=== PATIENT | female | born 1935 | race Caucasian/White ===

== ENCOUNTER 2016-08-16 20:30 | Outpatient (CLI) | payer MEDICARE, OTHER ==
[2016-08-16 17:13] LABS: BASOPHILS % (AUTO) 0.9 %; EOSINOPHILS # (AUTO) 0.1 10^3/uL (0.0-0.7); EOSINOPHILS % (AUTO) 1.5 %; HCT - HEMATOCRIT 39.2 % (37.0-47.0); HGB - HEMOGLOBIN 12.9 g/dL (12.0-16.0); LYMPHOCYTES # (AUTO) 1.2 10^3/uL (1.5-3.5); LYMPHOCYTES % (AUTO) 27.4 %; MEAN CORPUSCULAR HEMOGLOBIN 30.5 pg (27.0-31.0); MEAN CORPUSCULAR HGB CONC 32.8 g/dL (32.0-36.0); MEAN PLATELET VOLUME 8.1 fL (7.9-10.8); MONOCYTES # (AUTO) 0.3 10^3/uL (0.0-1.0); MONOCYTES % (AUTO) 7.7 %; NEUTROPHILS # (AUTO) 2.7 10^3/uL (1.5-6.6); NEUTROPHILS % (AUTO) 62.5 %; RED BLOOD COUNT 4.22 10^6/uL (4.20-5.40); RED CELL DISTRIBUTION WIDTH 13.8 % (12.0-15.0); UNCORRECTED WHITE BLOOD COUNT 4.3 x10^3/uL; WHITE BLOOD COUNT 4.3 x10^3/uL (4.8-10.8)
[2016-08-16 17:22] LABS: ALBUMIN/GLOBULIN RATIO 1.6 (1.0-2.2); BILIRUBIN,TOTAL 0.6 mg/dL (0.2-1.0); CALCIUM 9.4 mg/dL (8.5-10.3); CREATININE 0.7 mg/dL (0.4-1.0); POTASSIUM 3.8 mmol/L (3.5-5.0); TOTAL PROTEIN 6.9 g/dL (6.7-8.2)
[2016-08-17 06:03] LABS: TEST RESULT REPORT (())
== END 2016-08-16 20:31 | disposition home or self-care (01) ==
LOC: LAB.R 20:30
PROVIDERS: ATTEND Internal Medicine
DX: D70.9 Neutropenia, unspecified (principal); M19.90 Unspecified osteoarthritis, unspecified site; E55.9 Vitamin D deficiency, unspecified
CPT/HCPCS: 80053; 81599; 82306; 85025

== ENCOUNTER 2016-10-04 08:57 | Outpatient (CLI) | payer MEDICARE, OTHER ==
[2016-10-04 12:06] LABS: BASOPHILS % (AUTO) 1.1 %; EOSINOPHILS # (AUTO) 0.1 10^3/uL (0.0-0.7); EOSINOPHILS % (AUTO) 1.5 %; HCT - HEMATOCRIT 37.9 % (37.0-47.0); HGB - HEMOGLOBIN 12.8 g/dL (12.0-16.0); LYMPHOCYTES # (AUTO) 1.1 10^3/uL (1.5-3.5); LYMPHOCYTES % (AUTO) 32.1 %; MEAN CORPUSCULAR HEMOGLOBIN 31.1 pg (27.0-31.0); MEAN CORPUSCULAR HGB CONC 33.7 g/dL (32.0-36.0); MEAN CORPUSCULAR VOLUME 92.3 fL (81.0-99.0); MEAN PLATELET VOLUME 7.5 fL (7.9-10.8); MONOCYTES # (AUTO) 0.3 10^3/uL (0.0-1.0); MONOCYTES % (AUTO) 9.6 %; NEUTROPHILS % (AUTO) 55.7 %; RED BLOOD COUNT 4.11 10^6/uL (4.20-5.40); RED CELL DISTRIBUTION WIDTH 13.6 % (12.0-15.0); UNCORRECTED WHITE BLOOD COUNT 3.6 x10^3/uL; WHITE BLOOD COUNT 3.6 x10^3/uL (4.8-10.8)
== END 2016-10-04 08:58 | disposition home or self-care (01) ==
LOC: LAB.R 08:57
PROVIDERS: ATTEND Internal Medicine
DX: R59.0 Localized enlarged lymph nodes (principal)
CPT/HCPCS: 85025; 85651; 86140

== ENCOUNTER 2016-10-12 14:13 | Outpatient (CLI) | payer MEDICARE, OTHER ==
--- NOTE | 2016-10-13 08:33 | Ultrasound Report ---
ULTRASOUND RIGHT NECK: 10/12/2016 CLINICAL INDICATION: Preauricular nodule. TECHNIQUE: Real-time scanning was performed with promotions representative static images obtained. Ultrasound of the palpable abnormality identified by the patient was performed. At this site, there is a 1.3 x 1.1 x 0.6 cm cyst with internal debris and a thin septation. No sonographically suspiciou s findings are identified. No vascularity is appreciated. IMPRESSION: SMALL CYST, ACCOUNTING FOR THE PALPABLE ABNORMALITY. JOB #: [id number] EXT JOB #:[id number]
== END 2016-10-12 14:14 | disposition home or self-care (01) ==
LOC: DI 14:13
PROVIDERS: ATTEND Internal Medicine
DX: Q18.1 Preauricular sinus and cyst (principal)
CPT/HCPCS: 76536

== ENCOUNTER 2016-11-25 16:51 | Emergency (ER) | payer MEDICARE, OTHER ==
[2016-11-25 17:14] VITALS: BP 121/75
--- NOTE | 2016-11-25 17:25 | ED Physician Documentation ---
PD HPI FEVER - Stated complaint Stated Complaint: FEVER - Chief complaint Chief Complaint: Fever - History obtained from History obtained from: Patient, Family - History of Present Illness Timing - onset: How many days ago (3) Timing duration: Days (3) Timing details: Gradual onset Pain level max: 0 Pain level now: 0 Associated symptoms: Nasal congestion, Rhinorrhea, Dry cough. No: Sore throat, Productive cough, Hemoptysis, Chest pain, Dyspnea, Abdominal pain, NVD Contributing factors: Immunocompromised (has had neutropenia before, but not for several years). No: Sick contact, Travel, Unimmunized, COPD / asthma Similar symptoms before: Has not had sx before Recently seen: Clinic (2 days ago for same) Review of Systems Constitutional: reports: Fever (up to 103 at home). denies: Chills Respiratory: reports: Cough GI: denies: Abdominal Pain, Nausea, Vomiting, Diarrhea Skin: denies: Rash Musculoskeletal: denies: Neck pain, Back pain Neurologic: denies: Focal weakness, Numbness, Headache PD PAST MEDICAL HISTORY - Past Medical History Past Medical History: Yes Cardiovascular: None Respiratory: None, Other Neuro: None Endocrine/Autoimmune: None GI: None COMMUNICATIONS ADVISOR: None : None HEENT: None Psych: Panic attacks Musculoskeletal: Osteoarthritis Derm: None - Past Surgical History General: Colonoscopy /COMMUNICATIONS ADVISOR: Hysterectomy - Present Medications Home Medications: Ambulatory Orders Medication Instructions Recorded Confirmed Acetaminophen [Pain Relief] 500 mg PO PRN PRN 09/02/12 11/25/16 Cholecalciferol [Vitamin D3] 400 unit PO DAILY 09/02/12 11/25/16 Azithromycin [Zithromax] 250 mg PO DAILY #4 tablet 11/25/16 - Allergies Allergies/Adverse Reactions: Allergies Allergy/AdvReac Type Severity Reaction Status Date / Time codeine Allergy Nausea Verified 11/25/16 18:16 - Social History Does the pt smoke?: No Smoking Status: Former smoker PD ED PE NORMAL - Vitals Vital signs reviewed: Yes - General General: Alert and oriented X 3, No acute distress - HEENT HEENT: PERRL, Moist mucous membranes, Pharynx benign - Neck Neck: Supple, no meningeal sign - Cardiac Cardiac: RRR, Strong equal pulses - Respiratory Respiratory: No respiratory distress, Other (rhonchi LLL) - Abdomen Abdomen: Soft, Non tender, Non distended - Back Back: No CVA TTP - Derm Derm: Warm and dry, No rash - Neuro Neuro: Alert and oriented X 3 - Psych Psych: Normal mood, Normal affect Results - Vitals Vitals: Vital Signs - 24 hr 11/25/16 17:08 Temperature 37.5 C Heart Rate 81 Respiratory 16 Rate Blood Pressure 121/75 O2 Saturation 92 Oxygen O2 Source Room air - Labs Labs: Laboratory Tests 11/25/16 11/25/16 11/25/16 17:45 17:48 17:48 WBC 4.3 L RBC 4.18 L Hgb 13.2 Hct 38.6 MCV 92.3 MCH 31.6 H MCHC 34.3 RDW 13.0 Plt Count 209 MPV 6.8 L Neut # 2.7 Lymph # 1.0 L Bartholomew # 0.6 Eos # 0.0 Baso # 0.0 Absolute Nucleated RBC 0.00 Nucleated RBCs 0.0 Sodium 136 Potassium 4.2 Chloride 101 Carbon Dioxide 27 Anion Gap 8.0 BUN 18 Creatinine 0.8 Estimated GFR (MDRD) 69 L Glucose 112 H Calcium 8.8 Total Bilirubin 0.4 AST 26 ALT 19 Alkaline Phosphatase 52 Total Protein 7.5 Albumin 3.8 Globulin 3.7 Albumin/Globulin Ratio 1.0 Lipase 81 H Urine Color YELLOW Urine Clarity CLEAR Urine pH 5.5 Ur Specific [place] >=1.030 H Urine Protein 30 H Urine Glucose (UA) NEGATIVE Urine Ketones TRACE Urine Occult Blood SMALL H Urine Nitrite NEGATIVE Urine Bilirubin NEGATIVE Urine Urobilinogen 0.2 (NORMAL) Ur Leukocyte Esterase SMALL H Urine RBC 0-5 Urine WBC 11-25 H Ur Squamous Epith Cells MANY Squamous H Urine Bacteria Few Urine Mucus Few Strands Ur Microscopic Review INDICATED Urine Culture Comments NOT INDICATED - Rads (name of study) Chest x-ray Radiology: Prelim report reviewed, EMP read contemporaneously, See rad report ( New 5 cm opacity in the superior segment left lower lobe. In the setting of fever and cough would be suspicious for pneumonia. Pulmonary malignancy could have a similar appearance and radiographic follow-up is recommended) PD MEDICAL DECISION MAKING - ED course Complexity details: reviewed results, re-evaluated patient, considered differential, d/w patient, d/w family ED course: Patient is a 81-year-old female who presents to the emergency department with fever, cough and what appears to be a pneumonia on chest x-ray. Will place on antibiotics for home. We will have her follow-up with her doctor for repeat chest x-ray after she finishes her antibiotics to ensure that this opacity has cleared and does not represent a possible pulmonary malignancy. Patient and family counseled regarding signs and symptoms for which I believe and urgent re- evaluation would be necessary. Patient with good understanding of and agreement to plan and is comfortable going home at this time This document was made in part using voice recognition software. While efforts are made to proofread this document, sound alike and grammatical errors may occur. Departure - Departure Disposition: 01 Home, Self Care Clinical Impression: Pneumonia Qualifiers: Pneumonia type: due to unspecified organism Laterality: left Lung location: lower lobe of lung Qualified Code(s): J18.1 - Lobar pneumonia, unspecified organism Condition: Good Instructions: ED Pneumonia Adult Follow-Up: Anthony Varela MD [Primary Care Provider] - Within 1 week Prescriptions: Azithromycin [Zithromax] 250 mg PO DAILY #4 tablet Comments: Take all antibiotics until gone. Return if you worsen. you need to have a follow up chest xray after your treatment to ensure resolution. Discharge Date/Time: 11/25/16 18:19
--- NOTE | 2016-11-25 17:48 | XRAY Preliminary Report ---
Exam: XR Chest 2 View PA/LAT IMPRESSION: New 5 cm opacity in the superior segment left lower lobe. In the setting of fever and cou gh would be suspicious for pneumonia. Pulmonary malignancy could have a similar appearance and radiog raphic follow-up is recommended. [facility] SITE ID: [id number]
--- NOTE | 2016-11-25 17:51 | XRAY Report ---
EXAM: CHEST RADIOGRAPHY EXAM DATE: 11/25/2016 05:39 PM. CLINICAL HISTORY: Cough, fever. COMPARISON: 01/25/2009. TECHNIQUE: 2 views. FINDINGS: Lungs/Pleura: There is a focal ovoid opacity in the superior segment of the left lower lobe measuring 5 cm in diameter. New since previous. The right lung is clear. No pleural effusion or pneumothorax. Mediastinum: The heart size is normal. There is [id number] aortic tortuosity. Other: None. IMPRESSION: New 5 cm opacity in the superior segment left lower lobe. In the setting of fever and cou gh would be suspicious for pneumonia. Pulmonary malignancy could have a similar appearance and radiog raphic follow-up is recommended. [facility] Referring Provider Line: [phone] SITE ID: [id number]
[2016-11-25 17:54] LABS: BILIRUBIN,URINE NEGATIVE (NEGATIVE); PH,URINE 5.5 PH (5.0-7.5)
[2016-11-25] MEDS ORDERED: AZITHROMYCIN 250 MG TABLET PO STA (17:55)
[2016-11-25 17:56] LABS: BASOPHILS % (AUTO) 0.7 %; EOSINOPHILS % (AUTO) 0.8 %; HCT - HEMATOCRIT 38.6 % (37.0-47.0); HGB - HEMOGLOBIN 13.2 g/dL (12.0-16.0); LYMPHOCYTES % (AUTO) 22.7 %; MEAN CORPUSCULAR HEMOGLOBIN 31.6 pg (27.0-31.0); MEAN CORPUSCULAR HGB CONC 34.3 g/dL (32.0-36.0); MEAN CORPUSCULAR VOLUME 92.3 fL (81.0-99.0); MEAN PLATELET VOLUME 6.8 fL (7.9-10.8); MONOCYTES # (AUTO) 0.6 10^3/uL (0.0-1.0); MONOCYTES % (AUTO) 13.1 %; NEUTROPHILS # (AUTO) 2.7 10^3/uL (1.5-6.6); NEUTROPHILS % (AUTO) 62.7 %; RED BLOOD COUNT 4.18 10^6/uL (4.20-5.40); UNCORRECTED WHITE BLOOD COUNT 4.3 x10^3/uL; WHITE BLOOD COUNT 4.3 x10^3/uL (4.8-10.8)
[2016-11-25 18:03] LABS: UA w/ MICROSCOPIC CHARGE YES
[2016-11-25 18:06] LABS: BILIRUBIN,TOTAL 0.4 mg/dL (0.2-1.0); CALCIUM 8.8 mg/dL (8.5-10.3); CREATININE 0.8 mg/dL (0.4-1.0); POTASSIUM 4.2 mmol/L (3.5-5.0); TOTAL PROTEIN 7.5 g/dL (6.7-8.2)
[2016-11-25] MEDS ORDERED: AZITHROMYCIN 250 MG TABLET PO ONE ×2 (18:17→18:18)
[2016-11-25 18:27] LABS: UR CULTURE IF IND NOT INDICATED
== END 2016-11-25 18:19 | disposition home or self-care (01) ==
LOC: ED 16:51
DX: J18.9 Pneumonia, unspecified organism (principal); M19.90 Unspecified osteoarthritis, unspecified site; Z87.891 Personal history of nicotine dependence
CPT/HCPCS: 36415; 71020; 80053; 81001; 83690; 85025; 99283; 99284; A9270; 81003; 87086

== ENCOUNTER 2016-12-05 13:00 | Outpatient (CLI) | payer MEDICARE, OTHER ==
--- NOTE | 2016-12-05 17:50 | XRAY Report ---
TWO-VIEW CHEST: 12/05/2016 CLINICAL INDICATION: Pneumonia, persistent cough. COMPARISON: 11/25/2016 FINDINGS: Frontal and lateral views of the chest demonstrate a normal cardiac silhouette. There has been interval improvement in left mid lung infiltrate. No effusion or pneumothorax is seen. The ri ght lung remains clear. IMPRESSION: IMPROVING LEFT MID LUNG INFILTRATE. JOB #: [id number] EXT JOB #:[id number]
== END 2016-12-05 13:01 | disposition home or self-care (01) ==
LOC: DI 13:00
PROVIDERS: ATTEND Internal Medicine
DX: J18.9 Pneumonia, unspecified organism (principal)
CPT/HCPCS: 71020

== ENCOUNTER 2016-12-11 03:37 | Emergency (ER) | payer MEDICARE, OTHER ==
[2016-12-11] MEDS ORDERED: DEXAMETHASONE 10 MG/ML VIAL PO STA (04:01)
[2016-12-11] MEDS ORDERED: DEXAMETHASONE 10 MG/ML VIAL ONE (04:07)
[2016-12-11] MEDS ORDERED: CHERRY SYRUP 10 ML UDC PO ONE (04:07)
--- NOTE | 2016-12-11 04:08 | ED Physician Documentation ---
PD HPI NECK PAIN - Stated complaint Stated Complaint: NECK PAIN - Chief complaint Chief Complaint: Ext Problem - History obtained from History obtained from: Patient, Family - History of Present Illness Timing - onset: How many days ago (10) Timing - duration: Days (10) Timing - details: Gradual onset, Still present Location: Upper, Mid Quality: Pain, Spasm, Sharp Associated symptoms: No: Fever, Weakness, Numbness, Incontinent of urine, Unable to urinate, Hematuria, Incontinent of stool Improves with: Rest, Position Worsened by: Movement Contributing factors: Other (The patient has had a recent pneumonia and has been treated and re-evaluated. She has a history of a mild leukopenia.) Similar symptoms before: Diagnosis (meningitis.) Recently seen: Emergency Dept - Additional information Additional information: 81-year-old female with a prior history of leukopenia has had a cough and developed pneumonia was treated and has had follow-up chest x-ray with demonstration of resolution. She has had a stiff neck and she accounts this to coughing excessively. She had initially some pain in her neck about 10 days ago but over the past 3 days she is not able to sleep without holding her neck still. She has been able to flex and extend her neck. She has had low-grade fever until about 10 days ago. Review of Systems Constitutional: reports: Fever, Myalgias, Fatigue Ears: denies: Ear pain Nose: reports: Rhinorrhea / runny nose, Congestion Throat: denies: Sore throat Cardiac: denies: Chest pain / pressure, Palpitations Respiratory: reports: Cough. denies: Dyspnea GI: denies: Abdominal Pain, Nausea, Vomiting : denies: Dysuria, Frequency Skin: denies: Rash Musculoskeletal: reports: Neck pain. denies: Back pain, Extremity pain Neurologic: reports: Headache. denies: Generalized weakness, Focal weakness, Numbness, Head injury, LOC PD PAST MEDICAL HISTORY - Past Medical History Past Medical History: Yes Cardiovascular: None Respiratory: Other Neuro: None Endocrine/Autoimmune: None GI: None PRE PRESS OPERATOR: None : None HEENT: None Psych: Panic attacks Musculoskeletal: Osteoarthritis Derm: None - Past Surgical History Past Surgical History: Yes General: Colonoscopy /PRE PRESS OPERATOR: Hysterectomy - Present Medications Home Medications: Ambulatory Orders Medication Instructions Recorded Confirmed Acetaminophen [Pain Relief] 500 mg PO PRN PRN 09/02/12 11/25/16 Cholecalciferol [Vitamin D3] 400 unit PO DAILY 09/02/12 11/25/16 Azithromycin [Zithromax] 250 mg PO DAILY #4 tablet 11/25/16 Amox/Clav 875/125 [Augmentin] 1 each PO Q12H #20 tablet 12/11/16 Cyclobenzaprine [Flexeril] 10 mg PO TID PRN #20 tablet 12/11/16 traMADol [Ultram] 50 - 100 mg PO Q6H PRN #20 tablet 12/11/16 - Allergies Allergies/Adverse Reactions: Allergies Allergy/AdvReac Type Severity Reaction Status Date / Time No Known Drug Allergies Allergy Verified 12/11/16 04:02 - Social History Does the pt smoke?: No Smoking Status: Former smoker Does the pt drink ETOH?: No Does the pt have substance abuse?: No - Immunizations Immunizations are current?: Yes - POLST Patient has POLST: No PD ED PE NORMAL - Vitals Vital signs reviewed: Yes (hypertensive) - General General: Alert and oriented X 3, Well developed/nourished, Other (The patient arrives to the ED with a cervical pillow in place. ) - HEENT HEENT: Atraumatic, PERRL, EOMI, Other (both TM's are erythematous along the umbo with distortion of the landmarks. ) - Neck Neck: No bony TTP, Other (There is nuchal rigidity ) - Cardiac Cardiac: RRR, No murmur - Respiratory Respiratory: No respiratory distress, Clear bilaterally - Abdomen Abdomen: Soft, Non tender - Back Back: No CVA TTP, No spinal TTP - Derm Derm: Normal color, Warm and dry, No rash - Extremities Extremities: No deformity, No edema - Neuro Neuro: No motor deficit, No sensory deficit - Psych Psych: Normal mood, Normal affect Results - Vitals Vitals: Vital Signs - 24 hr 12/11/16 12/11/16 12/11/16 03:47 05:41 06:37 Temperature 37.1 C 36.7 C Heart Rate 87 74 78 Respiratory 16 24 17 Rate Blood Pressure 131/81 H 125/76 131/73 H O2 Saturation 95 91 L 96 12/11/16 06:50 Temperature Heart Rate Respiratory 16 Rate Blood Pressure O2 Saturation Oxygen O2 Source Room air - Labs Labs: Laboratory Tests 12/11/16 06:30 CSF Color PINK CSF Clarity HAZY Xanthrochromic ABSENT CSF WBC 0 CSF RBC 3120 H CSF Cell Count Tube # CSF TUBE# 3 CSF Glucose 62 CSF Total Protein 28 PD MEDICAL DECISION MAKING - ED course Complexity details: reviewed old records, reviewed results, re-evaluated patient , considered differential, d/w patient, d/w family ED course: 81-year-old female with a prior history of leukopenia has had a low-grade fever and upper respiratory infection had pneumonia and has been treated for that she feels that she is improved with this but has a very stiff neck. On examination she appears to have nuchal rigidity she has had low-grade fever and my concern was for a partially treated meningitis. We did do lumbar puncture which was negative for white blood cells. The patient was treated in the emergency department with dexamethasone 10 mg orally and by the time she was ready to leave the emergency department she had some significant improvement in her neck pain. She primarily appears to have this neck pain related to coughing paroxysms and CT scan of her cervical spine shows significant arthritic changes and this is not a surprise that she would have some pain in her neck. On examination she does have middle ear inflammation bilaterally and she has a persistent cough. She has had a recent course of azithromycin and this did not clear her ears. We will switch her antibiotic to Augmentin and place her into a soft cervical collar and provide her with pain medication and muscle relaxant. Departure - Departure Disposition: 01 Home, Self Care Clinical Impression: Cervical strain, acute Qualifiers: Encounter type: initial encounter Qualified Code(s): S16.1XXA - Strain of muscle, fascia and tendon at neck level, initial encounter Otitis media Qualifiers: Otitis media type: suppurative Chronicity: acute Laterality: bilateral Recurrence: not specified as recurrent Spontaneous tympanic membrane rupture: without spontaneous rupture Qualified Code(s): H66.003 - Acute suppurative otitis media without spontaneous rupture of ear drum, bilateral Condition: Stable Instructions: ED Sprain Strain Neck, ED Otitis Media Acute Adult Follow-Up: Anthony Varela MD [Primary Care Provider] - Prescriptions: Amox/Clav 875/125 [Augmentin] 1 each PO Q12H #20 tablet Cyclobenzaprine [Flexeril] 10 mg PO TID PRN #20 tablet PRN Reason: Spasms traMADol [Ultram] 50 - 100 mg PO Q6H PRN #20 tablet PRN Reason: Pain
--- NOTE | 2016-12-11 05:01 | CT Preliminary Report ---
Exam: CT Cervical Spine W/O IMPRESSION: 1. No acute cervical spine fracture. 2. Moderate multilevel degenerative changes without high-grade spinal canal stenosis. 3. Moderate bilateral foraminal narrowing at C4-C5 and on the left at C5-C6. [facility] SITE ID: [id number]
--- NOTE | 2016-12-11 05:09 | CT Report ---
EXAM: CT CERVICAL SPINE WITHOUT CONTRAST DATE: 12/11/2016 04:37 AM HISTORY: Stiff neck after coughing paroxysms. COMPARISONS: None. TECHNIQUE: Thin-section axial images were acquired of the cervical spine without contrast. Post-proce ssing: Coronal and sagittal reformats. Other: None. In accordance with CT protocol optimization, one or more of the following dose reduction techniques w ere utilized for this exam: automated exposure control, adjustment of mA and/or KV based on patient s ize, or use of iterative reconstructive technique. FINDINGS: Alignment: Degenerative grade 1 anterolisthesis is present at C3-C4, C5-C6, and C6-C7 measuring 12 m m. Anterolisthesis at T2-T3 is also present measuring 2 mm. Dextroscoliosis is present with the apex at C5-C6. Bones: No acute cervical spine fracture is identified. Sclerotic endplate changes are noted at C5-C6 and C6-C7 due to severe underlying degenerative disk changes. Interspace Levels/Facets: C1-C2: Mild degenerative changes are present anteriorly without craniocervical stenosis. C2-C3: Bilateral facet arthropathy is present, left greater than right. However, there is no spinal c anal or foraminal stenosis. C3-C4: A disk bulge is present without spinal canal stenosis. Facet arthropathy is present bilaterall y without foraminal narrowing. C4-C5: A posterior disk osteophyte complex is present without spinal canal stenosis. There is moderat e bilateral foraminal narrowing due to uncovertebral hypertrophy and facet arthropathy. C5-C6: A posterior disk osteophyte complex results in mild spinal canal stenosis. There is moderate l eft foraminal narrowing due to uncovertebral hypertrophy and facet arthropathy. The right foramen is patent. C6-C7: A posterior disk osteophyte complex is present without spinal canal stenosis. There is mild bi lateral foraminal narrowing due to uncovertebral hypertrophy. C7-T1: Bilateral facet arthropathy is noted without spinal canal or foraminal stenosis. Musculature: There is moderate diffuse fatty atrophy of the posterior paraspinal muscles. Other: No acute abnormality is seen in the soft tissues of the neck. The lung apices are clear. IMPRESSION: 1. No acute cervical spine fracture. 2. Moderate multilevel degenerative changes without high-grade spinal canal stenosis. 3. Moderate bilateral foraminal narrowing at C4-C5 and on the left at C5-C6. [facility] Referring Provider Line: [phone] SITE ID: [id number]
[2016-12-11 07:01] LABS: CSF - GLUCOSE 62 mg/dL (45-70)
[2016-12-11 07:25] LABS: CLARITY,CSF HAZY (CLEAR); COLOR,CSF PINK (COLORLESS); CSF XANTHOCHROMIA ABSENT (ABSENT); WHITE BLOOD CELL,CSF 0 /mm^3 (0-5)
[2016-12-11 08:24] VITALS: BP 128/69
== END 2016-12-11 08:40 | disposition home or self-care (01) ==
LOC: ED 03:37
DX: S16.1XXA Strain of muscle, fascia and tendon at neck level, initial encounter (principal); X58.XXXA Exposure to other specified factors, initial encounter; H66.003 Acute suppurative otitis media without spontaneous rupture of ear drum, bilateral; D72.819 Decreased white blood cell count, unspecified
CPT/HCPCS: 72125; 82945; 84157; 87070; 87205; 89051; 99283; 99284; A9270

== ENCOUNTER 2016-12-17 09:19 | Emergency (ER) | payer MEDICARE, OTHER ==
--- NOTE | 2016-12-17 10:04 | ED Physician Documentation ---
PD HPI URI - Stated complaint Stated Complaint: HEADACHE/NECK PX/SHAKING - Chief complaint Chief Complaint: General - History obtained from History obtained from: Patient, Family - History of Present Illness Timing - onset: How many weeks ago (3+) Timing duration: Weeks (3+) Timing details: Gradual onset, Still present, Waxing and waning Associated symptoms: Fever, Chills, Ear pain, Nasal congestion, Rhinorrhea, Sinus pain, Dry cough, Other (headache) Improves by: Rest, Medication Similar symptoms before: Diagnosis (pneumonia) Recently seen: Clinic, Emergency Dept - Additional information Additional information: 81-year-old female was diagnosed with pneumonia 3 weeks ago. She has had a cough and coughing paroxysms she coughs so hard that she strained her neck and was seen in the emergency department in follow up with a very stiff neck. Her neck was so stiff, and she has a history of neutropenia, that she had a lumbar puncture done. That lumbar puncture did show no white blood cells but there were over 3000 red cells. The patient does have a persistent headache at the base of her head some sinus congestion she has had fever off and on as well and she otherwise feels much improved from her prior visit. She is able to move her neck quite well now and her cough is improved she does have some clear phlegm that she is coughing up and she does have some green mucus coming from her nose. Review of Systems Constitutional: reports: Fever, Chills, Myalgias, Fatigue Eyes: denies: Decreased vision Ears: reports: Ear pain Nose: reports: Rhinorrhea / runny nose, Congestion, Sinus pressure / pain Throat: denies: Sore throat Cardiac: denies: Chest pain / pressure, Palpitations Respiratory: reports: Cough. denies: Dyspnea GI: denies: Abdominal Pain, Nausea, Vomiting : denies: Dysuria, Frequency Skin: denies: Rash Musculoskeletal: reports: Neck pain, Back pain. denies: Extremity pain PD PAST MEDICAL HISTORY - Past Medical History Cardiovascular: None Respiratory: Other Neuro: None Endocrine/Autoimmune: None GI: None HEAD OF ACQUISITIONS: None : None HEENT: None Psych: Panic attacks Musculoskeletal: Osteoarthritis Derm: None - Past Surgical History Past Surgical History: Yes General: Colonoscopy /HEAD OF ACQUISITIONS: Hysterectomy - Present Medications Home Medications: Ambulatory Orders Medication Instructions Recorded Confirmed Acetaminophen [Pain Relief] 500 mg PO PRN PRN 09/02/12 11/25/16 Cholecalciferol [Vitamin D3] 400 unit PO DAILY 09/02/12 11/25/16 Azithromycin [Zithromax] 250 mg PO DAILY #4 tablet 11/25/16 Amox/Clav 875/125 [Augmentin] 1 each PO Q12H #20 tablet 12/11/16 Cyclobenzaprine [Flexeril] 10 mg PO TID PRN #20 tablet 12/11/16 traMADol [Ultram] 50 - 100 mg PO Q6H PRN #20 tablet 12/11/16 - Allergies Allergies/Adverse Reactions: Allergies Allergy/AdvReac Type Severity Reaction Status Date / Time No Known Drug Allergies Allergy Verified 12/11/16 04:02 - Social History Does the pt smoke?: No Smoking Status: Former smoker Does the pt drink ETOH?: No Does the pt have substance abuse?: No - Immunizations Immunizations are current?: Yes - POLST Patient has POLST: No PD ED PE NORMAL - Vitals Vital signs reviewed: Yes (normal ) - General General: No acute distress, Well developed/nourished - HEENT HEENT: Atraumatic, PERRL, EOMI, Other (minimal erythema with lichenification consistent with serous otitis. ) - Neck Neck: Supple, no meningeal sign, No bony TTP - Cardiac Cardiac: RRR, No murmur - Respiratory Respiratory: No respiratory distress, Other (There is focal rhonchi in the left base) - Abdomen Abdomen: Soft, Non tender - Back Back: No CVA TTP, No spinal TTP - Derm Derm: Normal color, Warm and dry, No rash - Extremities Extremities: No deformity, No edema - Neuro Neuro: No motor deficit, No sensory deficit - Psych Psych: Normal mood, Normal affect Results - Vitals Vitals: Vital Signs - 24 hr 12/17/16 12/17/16 12/17/16 09:32 09:37 12:33 Temperature 36.6 C Heart Rate 88 74 Respiratory 18 16 Rate Blood Pressure 121/80 131/86 H O2 Saturation 98 99 Oxygen O2 Source Room air - Labs Labs: Laboratory Tests 12/17/16 12/17/16 12/17/16 10:39 10:39 10:52 WBC 3.7 L RBC 4.26 Hgb 13.0 Hct 38.4 MCV 90.0 MCH 30.6 MCHC 34.0 RDW 13.0 Plt Count 372 MPV 6.4 L Neut # 1.9 Lymph # 1.0 L Lucas # 0.7 Eos # 0.2 Baso # 0.0 Absolute Nucleated RBC 0.00 Nucleated RBCs 0.1 Sodium 133 L Potassium 3.6 Chloride 96 L Carbon Dioxide 27 Anion Gap 10.0 BUN 15 Creatinine 0.8 Estimated GFR (MDRD) 69 L Glucose 100 Calcium 9.2 Total Bilirubin 0.4 AST 54 H ALT 54 Alkaline Phosphatase 71 Total Protein 7.7 Albumin 3.5 Globulin 4.2 Albumin/Globulin Ratio 0.8 L Lipase 44 Urine Color YELLOW Urine Clarity CLEAR Urine pH 6.0 Ur Specific [place] 1.010 Urine Protein NEGATIVE Urine Glucose (UA) NEGATIVE Urine Ketones NEGATIVE Urine Occult Blood NEGATIVE Urine Nitrite NEGATIVE Urine Bilirubin NEGATIVE Urine Urobilinogen 0.2 (NORMAL) Ur Leukocyte Esterase NEGATIVE Ur Microscopic Review NOT INDICATED Urine Culture Comments NOT INDICATED Procedures - IVC sono (time) 1230 Bedside IVC sono: IVC measures (cm) (1.48), IVC collapsed c insp (cm) (complete) , Dehydration (mild) PD MEDICAL DECISION MAKING - ED course Complexity details: reviewed old records, reviewed results, re-evaluated patient , considered differential, d/w patient, d/w family, d/w PMD (Nichole will follow up this week. ) ED course: 81-year-old female with a recent history of pneumonia and otitis media has improved since her prior visit to the emergency department. She is able to move her neck freely now and has a bit of a headache at the base of her neck. She does not have evidence of intracranial hemorrhage or sinusitis on CT of the head examination of her ears shows what appears to be resolving otitis media and similarly on chest x-ray the pneumonia appears to be resolving as well. She has several days left of her Augmentin and she is having taste perversion. I have asked her to try some chewable vitamin C and to hydrate as she is mildly dehydrated today as well. She will follow-up with Dr. armenta at the end of this week as scheduled. Departure - Departure Disposition: 01 Home, Self Care Clinical Impression: Dehydration Otitis media Qualifiers: Otitis media type: serous Chronicity: unspecified Laterality: right Qualified Code(s): H65.91 - Unspecified nonsuppurative otitis media, right ear URI (upper respiratory infection) Qualifiers: URI type: unspecified URI Qualified Code(s): J06.9 - Acute upper respiratory infection, unspecified Condition: Stable Instructions: ED Otitis Media Serous Adult, ED Dehydration Follow-Up: Anthony Armenta MD [Primary Care Provider] - Comments: Continue your antibiotic until finished and expect resolution in your foul taste and smell symptoms when you finish the antibiotic. Discharge Date/Time: 12/17/16 12:45
--- NOTE | 2016-12-17 10:45 | CT Preliminary Report ---
Exam: CT Head W/O Impression: No evidence of an intracranial hemorrhage. Decreased density in the periventricular white matter that is nonspecific but most likely represents periventricular ischemic changes. Atherosclerosis of the internal carotid and vertebral arteries. [facility] SITE ID: [id number]
--- NOTE | 2016-12-17 10:48 | CT Report ---
EXAM: CT HEAD EXAM DATE: 12/17/2016 10:17 AM. CLINICAL HISTORY: Headache base of head. COMPARISON: None. TECHNIQUE: Multiaxial CT images were obtained from the foramen magnum to the vertex. IV contrast: Non e. Reformats: Coronal. In accordance with CT protocol optimization, one or more of the following dose reduction techniques w ere utilized for this exam: automated exposure control, adjustment of mA and/or KV based on patient s ize, or use of iterative reconstructive technique. FINDINGS: The ventricles and cortical sulci are normal for the patient's age. Decreased density is noted in the periventricular white matter that is nonspecific but most likely represents ischemic changes. The or bits are symmetric. There is atherosclerosis of the internal carotid and vertebral arteries. There is no evidence of an intraparenchymal hemorrhage or extra-axial fluid collection. No depressed skull fracture is seen. The visualized paranasal sinuses and mastoid air cells are clear . Impression: No evidence of an intracranial hemorrhage. Decreased density in the periventricular white matter that is nonspecific but most likely represents periventricular ischemic changes. Atherosclerosis of the internal carotid and vertebral arteries. [facility] Referring Provider Line: [phone] SITE ID: [id number]
--- NOTE | 2016-12-17 10:48 | XRAY Preliminary Report ---
Exam: XR Chest 2 View PA/LAT IMPRESSION: 1. Superior segment left lower lobe airspace disease compatible with pneumonia has nearly resolved. 2. Mild left basilar atelectasis. [facility] SITE ID: [id number]
[2016-12-17 10:49] LABS: BASOPHILS % (AUTO) 0.9 %; EOSINOPHILS # (AUTO) 0.2 10^3/uL (0.0-0.7); HCT - HEMATOCRIT 38.4 % (37.0-47.0); LYMPHOCYTES % (AUTO) 25.9 %; MEAN CORPUSCULAR HEMOGLOBIN 30.6 pg (27.0-31.0); MEAN PLATELET VOLUME 6.4 fL (7.9-10.8); MONOCYTES # (AUTO) 0.7 10^3/uL (0.0-1.0); MONOCYTES % (AUTO) 17.7 %; NEUTROPHILS # (AUTO) 1.9 10^3/uL (1.5-6.6); NEUTROPHILS % (AUTO) 50.5 %; NUCLEATED RED BLOOD CELLS AUTO 0.1 /100WBC; RED BLOOD COUNT 4.26 10^6/uL (4.20-5.40); UNCORRECTED WHITE BLOOD COUNT 3.7 x10^3/uL; WHITE BLOOD COUNT 3.7 x10^3/uL (4.8-10.8)
--- NOTE | 2016-12-17 10:51 | XRAY Report ---
EXAM: CHEST RADIOGRAPHY EXAM DATE: 12/17/2016 10:34 AM. CLINICAL HISTORY: L base rhonchi, cough. COMPARISON: 12/05/2016. 11/25/2016. TECHNIQUE: 2 views. FINDINGS: Lungs/Pleura: Decreasing superior segment left lower lobe opacity. No pleural effusion. No pneumothorax. Elongated left basilar opacity. Mediastinum: Tortuous thoracic aorta. Other: Prior right total shoulder arthroplasty. Prior left shoulder surgery. Convex right lumbar scol iosis. Mild lower thoracic spine degenerative changes. Moderate lumbar spine degenerative changes are partially imaged. IMPRESSION: 1. Superior segment left lower lobe airspace disease compatible with pneumonia has nearly resolved. 2. Mild left basilar atelectasis. [facility] Referring Provider Line: [phone] SITE ID: [id number]
[2016-12-17 10:59] LABS: ALBUMIN/GLOBULIN RATIO 0.8 (1.0-2.2); BILIRUBIN,TOTAL 0.4 mg/dL (0.2-1.0); CALCIUM 9.2 mg/dL (8.5-10.3); CREATININE 0.8 mg/dL (0.4-1.0); POTASSIUM 3.6 mmol/L (3.5-5.0); TOTAL PROTEIN 7.7 g/dL (6.7-8.2)
[2016-12-17 11:00] LABS: BILIRUBIN,URINE NEGATIVE (NEGATIVE)
[2016-12-17 11:01] LABS: UA CHARGE (STRIP ONLY) YES; UR CULTURE IF IND NOT INDICATED
[2016-12-17 12:34] VITALS: BP 131/86
== END 2016-12-17 12:45 | disposition home or self-care (01) ==
LOC: ED 09:19
DX: E86.0 Dehydration (principal); H65.91 Unspecified nonsuppurative otitis media, right ear; J06.9 Acute upper respiratory infection, unspecified; Z87.891 Personal history of nicotine dependence
CPT/HCPCS: 36415; 70450; 71020; 80053; 81001; 81003; 83690; 85025; 87040; 87086; 99283; 99284